=== PATIENT | male | born 2005 | race African-American/Black ===

== ENCOUNTER → 2024-12-17 | Emergency (ER) | payer OTHER ==
[~2024-12-17] VITALS: Ht 162.6 cm; Wt 50.0 kg
[2024-12-17 20:01] VITALS: BP 113/67; PULSE 98; RESP 18; TEMP 98.7; O2SAT 100
[2024-12-17] MEDS: ONDANSETRON 4 MG TABLET PO ONE (20:47)
[2024-12-17] MEDS: ACETAMINOPHEN 325 MG TABLET PO ONE (20:48)
[2024-12-17 21:22] LABS: BASOPHILS % (AUTO) 0.4 % (0.0-2.0); EOSINOPHILS % (AUTO) 3.2 % (1.0-6.0); HEMATOCRIT 47.6 % (41-53); HEMOGLOBIN 16.1 g/dL (13.5-17.5); LYMPHOCYTES # (AUTO) 1.6 K/uL (1.0-4.8); LYMPHOCYTES % (AUTO) 28.6 % (22.0-44.0); MEAN CORPUSCULAR HEMOGLOBIN 31.9 pg (26.0-34.0); MEAN CORPUSCULAR HGB CONC 33.9 G/dL (31.0-37.0); MEAN CORPUSCULAR VOLUME 94 fL (80-100); MONOCYTES # (AUTO) 0.6 K/uL (0.1-1.0); MONOCYTES % (AUTO) 10.9 % (2.0-9.0); NEUTROPHILS # (AUTO) 3.2 K/uL (1.8-7.7); NEUTROPHILS % (AUTO) 56.9 % (40.0-70.0); PLATELET COUNT (AUTO) 172 K/uL (150-450); RED BLOOD CELL COUNT(AUTO) 5.06 MIL/uL (4.50-5.90); RED CELL DISTRIBUTION WIDTH 12.3 % (11.5-14.5); WHITE BLOOD COUNT (AUTO) 5.5 K/uL (4.5-11.0)
[2024-12-17 21:23] LABS: ANION GAP 7 mmol/L (8-16); CALCIUM, TOTAL 8.7 mg/dL (8.8-10.5); CARBON DIOXIDE 31 mmol/L (22-29); CHLORIDE 102 mmol/L (98-107); CREATININE 0.98 mg/dL (0.60-1.30); GLOMERULAR FILTR. RATE CALC > 60 mL/min (>60); GLUCOSE,RANDOM 103 mg/dL (70-110); POTASSIUM 4.1 mmol/L (3.5-5.1); SODIUM SERUM 140 mmol/L (136-145); UREA NITROGEN, BLOOD 21 mg/dL (7-18)
[2024-12-17 21:30] LABS: ALBUMIN 3.8 g/dL (3.4-5.0); BILIRUBIN,DIRECT 0.1 mg/dL (0.00-0.20); BILIRUBIN,TOTAL 0.4 mg/dL (0.1-1.0); TOTAL PROTEIN, SERUM 7.8 g/dL (6.4-8.2)
[2024-12-17 21:33] LABS: CREATINE KINASE, TOTAL ONLY 128 U/L (39-308); TROPONIN I-HIGH SENSITIVITY 5 ng/L (<76)
== END | disposition home or self-care (01) ==
LOC: EMS 19:55
DX: S06.0XAA Concussion with loss of consciousness status unknown, initial encounter (principal); R55 Syncope and collapse; R51.9 Headache, unspecified; R11.0 Nausea; W19.XXXA Unspecified fall, initial encounter; Y93.01 Activity, walking, marching and hiking; Y92.89 Other specified places as the place of occurrence of the external cause; Y99.8 Other external cause status
CPT/HCPCS: 99284; 70450; 80048; 80076; 82550; 84484; 85025; 36415; 72125; 93005; Q0162